=== PATIENT | male | born 1960 | race African-American/Black ===

== ENCOUNTER 2019-04-30 18:48 | Emergency (ER) | payer MEDICARE, MEDICAID ==
--- NOTE | 2019-04-30 19:28 | ED ---
Abdominal Pain/Male - HPI Summary HPI Summary: 59-year-old male with significant past medical history of schizophrenia, bipolar disorder presents to the emergency department today complaining of diffuse generalized abdominal pain 7 days. Patient states he has a "rumbling" feeling in his abdomen. Patient states he took Tums yesterday for alleviation of his pain which dod not help. Patient denies fevers, nausea, vomiting, diarrhea, blood per rectum, rash, pain with urination, chest pain, shortness of breath. Surgical history and family history noncontributory. Adequate history is difficult to obtain due to patient's intellectual disability. - History of Current Complaint Chief Complaint: EDAbdPain Stated Complaint: ABD PAIN PER EMS Time Seen by Provider: 04/30/19 19:15 Hx Obtained From: Patient Onset/Duration: Gradual Onset Timing: Constant Severity Initially: Severe Severity Currently: Severe Pain Intensity: 10 Pain Scale Used: 0-10 Numeric Location: Diffuse Radiates: No Character: Cramping - Allergies/Home Medications Allergies/Adverse Reactions: Allergies Allergy/AdvReac Type Severity Reaction Status Date / Time No Known Allergies Allergy Verified 07/27/14 09:26 Home Medications: Home Medications Al Hydrox/Mg Hydrox/Simet LIQ* [Maalox Plus*] 30 ml PO Q4H PRN #1800 udc [Rx] Benztropine Mesylate 0.5 mg PO BID 04/30/19 [History Confirmed 04/30/19] Divalproex ER TAB(*) [Depakote ER TAB(*)] 250 mg PO DAILY 04/30/19 [History Confirmed 04/30/19] Divalproex ER TAB(*) [Depakote ER TAB(*)] 500 mg PO DAILY 04/30/19 [History Confirmed 04/30/19] Docusate CAP* [Colace Cap*] 100 mg PO DAILY #12 cap 04/30/19 [Rx] Esomeprazole(NF) [NexIUM(NF)] 40 mg PO DAILY 04/30/19 [History Confirmed ] Ibuprofen TAB* [Motrin TAB* 600 MG] 600 mg PO Q8H PRN 04/30/19 [History Confirmed 04/30/19] LORazepam TAB(*) [Ativan 1 MG TAB (*)] 1 mg PO BEDTIME 04/30/19 [History Confirmed 04/30/19] OLANZapine [Zyprexa] 20 mg PO DAILY 04/30/19 [History Confirmed 04/30/19] PMH/Surg Hx/FS Hx/Imm Hx Psychiatric History: Denies: Hx Eating Disorder, Hx of Violent Episodes Against Others Infectious Disease History: No Infectious Disease History: Denies: Traveled Outside the [place] in Last 30 Days - Family History Known Family History: Negative: Cardiac Disease, Hypertension, Diabetes - Social History Alcohol Use: None Hx Substance Use: No Substance Use Type: Reports: None Hx Tobacco Use: Yes Smoking Status (MU): Heavy Every Day Tobacco Smoker Review of Systems Constitutional: Negative Eyes: Negative ENT: Negative Cardiovascular: Negative Respiratory: Negative Positive: Abdominal Pain. Negative: Vomiting, Diarrhea, Nausea Genitourinary: Negative Musculoskeletal: Negative Skin: Negative Neurological/Mental Status: Negative Psychological: Normal All Other Systems Reviewed And Are Negative: Yes Physical Exam Triage Information Reviewed: Yes Vital Signs On Initial Exam: Initial Vitals Temp Pulse Resp BP Pulse Ox 98.1 F 79 18 185/107 98 04/30/19 18:54 04/30/19 18:54 04/30/19 18:54 04/30/19 18:54 04/30/19 18:54 Vital Signs Reviewed: Yes Appearance: Positive: Well-Appearing, No Pain Distress, Well-Nourished Skin: Positive: Warm, Skin Color Reflects Adequate Perfusion Eyes: Positive: EOMI, MOHIT ENT: Positive: Hearing grossly normal Respiratory/Lung Sounds: Positive: Clear to Auscultation, Breath Sounds Present Cardiovascular: Positive: RRR, S1, S2 Abdomen Description: Positive: No Organomegaly, Soft. Negative: Distended, Guarding, McBurney's Point Tenderness, Peritoneal Signs, Pulsatile Mass Bowel Sounds: Positive: Present Musculoskeletal: Positive: Strength/ROM Intact Neurological: Positive: Sensory/Motor Intact, Alert, Oriented to Person Place, Time, Facial Symmetry, Speech Normal Psychiatric: Positive: Normal, Affect/Mood Appropriate AVPU Assessment: Alert Procedures - Sedation Patient Received Moderate/Deep Sedation with Procedure: No Diagnostics - Vital Signs Vital Signs Temp Pulse Resp BP Pulse Ox 04/30/19 18:54 98.1 F 79 18 185/107 98 - Laboratory Result Diagrams: 04/30/19 19:37 04/30/19 19:37 Lab Statement: Any lab studies that have been ordered have been reviewed, and results considered in the medical decision making process. Abdominal Pain Male Course/Dx - Course Course Of Treatment: Patient was evaluated in the emergency department today for abdominal pain. Vitals noted. Laboratory studies are done which showed no evidence of leukocytosis, electrolyte abnormalities or inflammatory process. KUB was done which showed mild dilation of the intestines with no evidence of obstruction. Patient's symptoms are likely due to gastritis. There is no acute medical problem requiring intervention at this time. Patient discharged with outpatient follow-up with a prescription for Maalox and stool softener. - Diagnoses Differential Diagnosis/HQI/PQRI: Constipation, Other - Bowel obstruction, ischemic bowel Provider Diagnoses: Abdominal pain Discharge ED - Sign-Out/Discharge Documenting (check all that apply): Patient Departure - Discharge Plan Condition: Stable Disposition: HOME Prescriptions: Al Hydrox/Mg Hydrox/Simet LIQ* [Maalox Plus*] 30 ml PO Q4H PRN #1800 udc PRN Reason: Nausea Docusate CAP* [Colace Cap*] 100 mg PO DAILY #12 cap Patient Education Materials: High Fiber Diet (ED), Gas and Bloating (ED), Abdominal Pain (ED) Referrals: Nisa AVILEZ,Dsemond [Primary Care Provider] - 3 Days Additional Instructions: Please take Maalox and stool softener as directed. Please follow up with your primary care provider in 3-5 days for further evaluation and management. Please return to the emergency department immediately if you develop any new or worsening symptoms. - Billing Disposition and Condition Condition: STABLE Disposition: Home
[2019-04-30] MEDS ORDERED: Al Hydrox/Mg Hydrox/Simet LIQ* 30 ML UDC PO ONE (19:39)
[2019-04-30] MEDS ORDERED: Lidocaine 2% VISCOUS* 15 ML UDC PO ONE (19:39)
[2019-04-30 19:48] LABS: ABS Eosinophils 0.1 10^3/ul (0-0.6); ABS Lymphocytes 1.3 10^3/ul (1.0-4.8); ABS Monocytes 0.5 10^3/ul (0-0.8); ABS Neutrophils 2.2 10^3/ul (1.5-7.7); Hematocrit 39 % (42-52); Hemoglobin 13.5 g/dL (14.0-18.0); Lymphocyte % 31.7 %; Mean Corpuscular HGB Conc 35 g/dL (31-36); Mean Corpuscular Hemoglobin 30 pg (27-31); Mean Corpuscular Volume 85 fL (80-94); Nucleated Red Blood Cells % 0.1; Platelet Count 206 10^3/uL (150-450); Red Blood Count 4.52 10^6 /uL (4.18-5.48); Red Cell Distribution Width 14 % (10-15)
[2019-04-30 20:07] LABS: Albumin 4.3 g/dL (3.2-5.2); Albumin/Globulin Ratio 1.3 (1-3); BUN/Creatinine Ratio 11.6 (8-20); C Reactive Protein 2.23 mg/L (<8.01); Calcium 9.5 mg/dL (8.6-10.3); EGFR African American 74.3 (>60); EGFR Non-African American 61.4 (>60); Globulin 3.3 g/dL (2-4); Potassium 4.2 mmol/L (3.5-5.0); Total Bilirubin 0.2 mg/dL (0.2-1.0); Total Protein 7.6 g/dL (6.4-8.9); Troponin I 0.01 ng/mL (<0.03)
[2019-04-30 20:12] LABS: Urine Appearance Clear; Urine Bilirubin Negative (Negative); Urine Blood Negative (Negative); Urine Color Yellow; Urine Glucose Negative (Negative); Urine Ketones Negative (Negative); Urine Nitrite Negative (Negative); Urine Protein Negative (Negative); Urine Specific Gravity 1.012 (1.010-1.030); Urine Urobilinogen Negative (Negative)
[2019-04-30 23:52] VITALS: BP 151/98
== END 2019-04-30 23:51 | disposition home or self-care (01) ==
LOC: ED 18:48
DX: R10.84 Generalized abdominal pain (principal); F79 Unspecified intellectual disabilities; F17.200 Nicotine dependence, unspecified, uncomplicated; Z79.899 Other long term (current) drug therapy
CPT/HCPCS: 36415; 74018; 80053; 81003; 83605; 83690; 84484; 85025; 86140; 99283; A9270-GY